=== PATIENT | male | born 1980 | race Caucasian/White ===

== ENCOUNTER 2020-08-25 23:08 | Outpatient (REF) | payer OTHER, SELFPAY ==
[2020-08-27 10:07] LABS: COVID-19 RT-PCR UVMMC Result Negative (Negative)
== END 2020-08-25 23:09 | disposition home or self-care (01) ==
LOC: LBN 23:08
PROVIDERS: Visit Provider Nurse Practitioner Family
DX: Z20.822 Contact with and (suspected) exposure to COVID-19 (principal); R05 Cough
CPT/HCPCS: U0003

== ENCOUNTER 2022-11-21 11:58 | Outpatient (REF) | payer OTHER, SELFPAY ==
[2022-11-21 22:06] LABS: Uric Acid 11.7 mg/dL (3.5-7.2)
[2022-11-21 22:28] LABS: Abs Immature Grans 0.03 10^3/uL (0.0-0.06); Absolute Basophil Count 0.07 10^3/uL (0.0-0.2); Absolute Eosinophil Count 0.31 10^3/uL (0.0-0.7); Absolute Lymphocyte Count 2.17 10^3/uL (1.2-3.4); Absolute Monocyte Count 0.67 10^3/uL (0.1-0.8); Basophils % 0.8; Eosinophils % 3.7; HCT 43.8 % (40.0-50.0); HGB 15.4 g/dL (13.5-17.5); Immature Grans % 0.4; Lymphocytes % 25.7; MCH 32.6 pg (27.0-33.0); MCHC 35.2 % (32.0-36.0); MCV 93 fL (80-95); MPV 10.3 fL (8.0-11.0); Monocytes % 7.9; Neutrophils % 61.5; Platelet Count 337 10^3/uL (130-400); RBC 4.73 10^6/uL (4.36-5.78); RDW 12.8 % (11.8-14.1); RDW-SD 43.6 fL; WBC 8.45 10^3/uL (4.4-10.8)
== END 2022-11-21 11:59 | disposition home or self-care (01) ==
LOC: LBN 11:58
PROVIDERS: Visit Provider Nurse Practitioner Family
DX: M79.644 Pain in right finger(s) (principal); M79.89 Other specified soft tissue disorders
CPT/HCPCS: 84550; 85025

== ENCOUNTER 2023-01-11 08:12 | Outpatient (REF) | payer OTHER, SELFPAY ==
--- NOTE | 2023-01-11 08:05 | SKI_PTH ---
PATIENT: Chuy Tapia LOC: [facility] U#:[id number] AGE/SX: 42/M ROOM: RE01/11/[address]: Jean Carlos Joyner MD : 1980 BED: DIS: 01/11/2023 SPEC #: [id number] RECD: 01/11/23 12:23 STATUS: MIKAYLA RE #: [id number] RADHA: 01/11/23 08:[address]: Jean Carlos Joyner DEPT: Surgical Specimen RECD BY: Leslie Harris ENTERED: 01/11/23 12:24 SP TYPE: NAEL BUTTERFIELD DR: Cj Atwood DNP Tissues: 1 - SKIN BIOPSY(SHAVE/PUNCH) Procedures: GROSS AND MICRO LEVEL 3 Comments: [id number]
== END 2023-01-11 08:13 | disposition home or self-care (01) ==
LOC: LBN 08:12
PROVIDERS: PCP Nurse Practitioner Family; Visit Provider Surgery
DX: L72.0 Epidermal cyst (principal); R22.1 Localized swelling, mass and lump, neck
CPT/HCPCS: 88304; 88305

== ENCOUNTER 2023-01-12 01:28 | Outpatient (CLI) | payer OTHER, SELFPAY ==
[2023-01-12 12:35] LABS: ALT 41 U/L (16-63); AST 24 U/L (15-37); Albumin 4.3 g/dL (3.4-5.0); Alkaline Phosphatase 75 U/L (46-116); Anion Gap 9.9 mmol/L (3-11); BUN 9 mg/dL (7-18); CO2 28.1 mmol/L (21.0-32.0); CREATININE 1.3 mg/dL (0.70-1.30); Calcium 9.4 mg/dL (8.5-10.1); Chloride 98 mmol/L (98-107); Cholesterol 217 mg/dL (<200); Estimated GFR 69.47 (mL/min/1.73m2); Glucose 100 mg/dL (74-106); HDL Cholesterol 56 mg/dL (40-60); Potassium 4.7 mmol/L (3.5-5.1); Sodium 136 mmol/L (136-145); Total Protein 7.7 g/dL (6.4-8.2); Triglyceride 478 mg/dL (<150)
[2023-01-12 13:18] LABS: LDL CHOLESTEROL 103 mg/dL (<100)
[2023-01-13 10:05] LABS: Hepatitis C Ab w Rflx HCV PCR Negative (Negative)
[2023-01-13 10:28] LABS: HIV-1/2 Ag & Ab Screen Negative (Negative)
[2023-01-13 10:58] LABS: Lyme Ab w Rflx to Lyme Confirm Negative (Negative)
[2023-01-15 01:05] LABS: Anaplasma phagocytophilum Negative (Negative); B. miyamotoi PCR Negative (Negative); Babesia divergens/MO-1 Negative (Negative); Babesia duncani Negative (Negative); Babesia microti Negative (Negative); Ehrlichia chaffeensis Negative (Negative); Ehrlichia ewingii/canis Negative (Negative); Ehrlichia muris eauclairensis Negative (Negative)
== END 2023-01-12 01:29 | disposition home or self-care (01) ==
LOC: LOS 01:29
PROVIDERS: PCP Nurse Practitioner Family; Visit Provider Nurse Practitioner Family
DX: Z13.220 Encounter for screening for lipoid disorders (principal); Z11.4 Encounter for screening for human immunodeficiency virus [HIV]; Z11.59 Encounter for screening for other viral diseases
CPT/HCPCS: 36415; 80053; 80061; 83721; 86803; 87389; 87798; 86618

== ENCOUNTER 2023-09-26 05:11 | Outpatient (CLI) | payer OTHER, SELFPAY ==
[2023-09-26 17:42] LABS: Anion Gap 11.2 mmol/L (3-11); BUN 15 mg/dL (7-18); CO2 25.8 mmol/L (21.0-32.0); CREATININE 1.2 mg/dL (0.70-1.30); Calcium 9.4 mg/dL (8.5-10.1); Chloride 99 mmol/L (98-107); Glucose 96 mg/dL (74-106); Potassium 4.2 mmol/L (3.5-5.1); Sodium 136 mmol/L (136-145); Uric Acid 7.3 mg/dL (3.5-7.2)
== END 2023-09-26 05:12 | disposition home or self-care (01) ==
LOC: LBO 05:11
PROVIDERS: PCP Nurse Practitioner Family; Visit Provider Nurse Practitioner Family
DX: I10 Essential (primary) hypertension (principal); M10.9 Gout, unspecified
CPT/HCPCS: 36415; 80048; 84550

== ENCOUNTER 2024-09-09 20:31 | Emergency (ER) | payer OTHER, SELFPAY ==
--- NOTE | 2024-09-09 20:30 | RT.EKG_ITS ---
APPROVED REPORT Exam: Resting ECG Reason for Exam: Syncope Patient Location: E HR:85 bpm ECG Measurements Heart Rate 85 AXIS AR 154 P 45 QRSd 92 QRS 52 QT 350 T 34 QTc 417 Conclusion Sinus rhythm...normal P axis, V-rate 60- 99
[2024-09-09 20:35] VITALS: BP 141/96; PULSE 92; RESP 20; O2SAT 97
[2024-09-09 21:39] VITALS: RESP 18
--- NOTE | 2024-09-09 21:45 | W.ED.GENAD ---
Discharge Plan Disposition Patient Disposition: Home Condition: Stable Discharge Details Clinical Impression: Vasovagal syncope Primary Care Provider: Cj Mclean ED Provider: Valerio Day Home Meds and New Rx's Prescriptions: Continued cetirizine [Allergy Relief (cetirizine)] 10 mg tablet 10 mg PO DAILY PRN (Reason: allergy symptoms) Qty: 90 4RF montelukast 10 mg tablet 10 mg PO QHS PRN (Reason: allergies) Qty: 90 4RF allopurinol 100 mg tablet 200 mg PO DAILY Qty: 180 3RF ibuprofen 200 mg tablet 600 mg PO Q6H PRN colchicine 0.6 mg tablet 0.6 mg PO BID Qty: 180 1RF lisinopril 20 mg tablet 20 mg PO DAILY Qty: 90 4RF Arnuity Ellipta 100 mcg/actuation blister with device 1 inh inhalation DAILY Qty: 30 11RF albuterol sulfate 90 mcg/actuation HFA aerosol inhaler 2 puff inhalation Q6H PRN (Reason: shortness of breath or wheezing) Qty: 8.5 1RF Discharge Instructions Instructions: Fainting, Adult ED Additional Instructions: You were seen in the emergency department for your vasovagal syncope episode, this has happened multiple times, I think it is time to follow-up with a referral to cardiology to get some baseline studies done, I do not see any more for CTA of the neck as you requested, you can pursue an outpatient ultrasound of the carotids which I placed an outpatient order form for you, your story and exam is not consistent with carotid pathology, this is most likely postural hypotension, your workup is negative for any cardiac abnormality or any major electrolyte abnormality, there is no sign of infection, x-ray of your chest is normal, x-ray of the hand shows no acute fracture. Please stay well-hydrated, please return to the emergency department for any episodes of chest pain especially with further falls and syncope. Referrals: Cj Mclean, [employer] [Primary Care Provider] - Discharge Orders Other Ambulatory Orders: US carotid (Routine) Timeframe: 10 Day Facility: [facility] - Location: DIAGNOSTIC IMAGING Ordered By: Valerio Day Discharge Data Discharge Date/Time-TO BE ENTERED AT DEPARTURE: 09/09/24 23:21 HPI General Date/Time Provider Initiated Documentation: 09/09/24 21:20. HPI Narrative: 44 year-old male presents to ED today by POV/ambulating with his with a chief complaint of syncope and fall- he got up as he was feeling mildly short on breath to get his inhaler, and lost consciousness and fell- was awoken by his with minor bruise above L eye, L ear abrasion, and R hand pain with onset just prior to arrival. Quality described as bruised face, pain at base of R first finger- R-hand dominant, otherwise doesn't remember, no radiation to current chest pain, nausea/vomiting, dehydration, diffuse weakness, altered mental status, abdominal pain, fever, cough. Severity is described as mild to moderate. Palliating factors include nothing specific attempted. Provoking factors include nothing specific. Patient not anticoagulated. Related Data Home Medications ?Medication ?Instructions ?Recorded ?Confirmed ibuprofen 200 mg tablet 600 mg PO Q6H PRN 01/11/23 09/09/24 colchicine 0.6 mg tablet 0.6 mg PO BID #180 tabs 10/04/23 09/09/24 lisinopril 20 mg tablet 20 mg PO DAILY #90 tabs 12/19/23 09/09/24 allopurinol 100 mg tablet 200 mg (2 x 100 mg) PO DAILY #180 02/14/24 09/09/24 tab-caps cetirizine 10 mg tablet (Allergy 10 mg PO DAILY PRN allergy 02/14/24 09/09/24 Relief (cetirizine)) symptoms #90 tabs montelukast 10 mg tablet 10 mg PO QHS PRN allergies #90 tabs 02/14/24 09/09/24 fluticasone furoate 100 1 inh inhalation DAILY #30 ea 03/08/24 09/09/24 mcg/actuation blister powder for inhalation (Arnuity Ellipta) albuterol sulfate 90 mcg/actuation 2 puff inhalation Q6H PRN 07/24/24 09/09/24 aerosol inhaler shortness of breath or wheezing #8.5 grams Previous Rx's ?Medication ?Instructions ?Recorded colchicine 0.6 mg tablet 0.6 mg PO BID #180 tabs 10/04/23 lisinopril 20 mg tablet 20 mg PO DAILY #90 tabs 12/19/23 allopurinol 100 mg tablet 200 mg (2 x 100 mg) PO DAILY #180 02/14/24 tab-caps cetirizine 10 mg tablet (Allergy 10 mg PO DAILY PRN allergy 02/14/24 Relief (cetirizine)) symptoms #90 tabs montelukast 10 mg tablet 10 mg PO QHS PRN allergies #90 tabs 02/14/24 fluticasone furoate 100 1 inh inhalation DAILY #30 ea 03/08/24 mcg/actuation blister powder for inhalation (Arnuity Ellipta) albuterol sulfate 90 mcg/actuation 2 puff inhalation Q6H PRN 07/24/24 aerosol inhaler shortness of breath or wheezing #8.5 grams Allergies Allergy/AdvReac Type Severity Reaction Status Date / Time No Known Allergies Allergy Unverified 09/09/24 20:41 General Stated Complaint: [id number] MARLA: 3 Review of Systems All systems reviewed & are unremarkable except as noted in HPI and below Exam Narrative Exam Narrative: GENERAL APPEARANCE: Well-nourished, non-toxic, awake and alert, atraumatic, no acute distress. SKIN: Warm, pink, dry, minor abrasion to right hand HEAD: Normocephalic, atraumatic, negative Umanzor sign, normal hair distribution for gender/age. EYES: Normal conjunctiva, no exudates on lids/lashes. ENT: Nares patent, no circumoral cyanosis, no facial swelling, left periorbital ecchymosis, no hemotympanum bilaterally NECK: Supple, trachea midline, painless cervical ROM, no midline cervical tenderness. LUNGS/CHEST: Lungs CTA bilaterally, non-labored respirations, normal A/P diameter, symmetrical expansion, no chest wall deformity HEART (CV/PV): Regular rate and rhythm without murmur, no peripheral edema, no JVD. ABDOMEN: Soft, non-distended, no guarding, no rigidity ecchymosis or abdominal tenderness. MSK: Normal ROM, no swelling/deformity to bilateral UEs or LEs, moving all extremities without weakness, no cyanosis, spine midline without tenderness, normal curvature. NEURO: Mental Status AAOx4 - alert to person, place, time, events No facial droop, no forehead involvement. Motor: No focal weakness - strength 5/5 in bilateral UEs and LEs, proximal and distal, symmetric. Sensory: sensation intact to light touch globally. Gait normal: patient ambulated without ataxia into ED room. PSYCH: euthymic, cooperative, pleasant, appropriate speech Course Vital Signs Vital signs: Vital Signs Pulse 92 H 09/09/24 20:35 Respiratory Rate 20 09/09/24 20:35 Blood Pressure 141/96 H 09/09/24 20:35 Pulse Oximetry 97 09/09/24 20:35 Pulse 92 H 09/09/24 20:35 Respiratory Rate 18 09/09/24 21:39 Respiratory Effort Normal 09/09/24 21:39 Respiratory Depth Normal 09/09/24 21:39 Respiratory Pattern Normal 09/09/24 21:39 Blood Pressure 141/96 H 09/09/24 20:35 Blood Pressure Position Sitting 09/09/24 20:35 Pulse Oximetry 97 09/09/24 20:35 Oxygen Delivery Method Room Air 09/09/24 20:35 Oxygen Flow Rate 0 09/09/24 20:35 Medical Decision Making This dictation utilizes [id number] dictation software and may contain unedited grammatical errors. 44 year-old male presents to ED today by POV/ambulating with his with a chief complaint of syncope and fall- he got up as he was feeling mildly short on breath to get his inhaler, and lost consciousness and fell- was awoken by his with minor bruise above L eye, L ear abrasion, and R hand pain with onset just prior to arrival. Quality described as bruised face, pain at base of R first finger- R-hand dominant, otherwise doesn't remember, no radiation to current chest pain, nausea/vomiting, dehydration, diffuse weakness, altered mental status, abdominal pain, fever, cough. Severity is described as mild to moderate. Palliating factors include nothing specific attempted. Provoking factors include nothing specific. Patients' medical history: Arthralgia, hypertension, gout. Family and social history: Recently quit smoking 6 weeks ago, eats normal diet, no recent travel or sick contacts. Pertinent exam findings / vital signs include contusion to left eyebrow, left periorbital ecchymosis, orbit stable without crepitus, small abrasion to the pinna of the left ear, no hemotympanum bilaterally, benign cardiopulmonary status, benign abdomen, pain at the first right MCP joint without anatomical snuffbox tenderness. Differential / pathologies of concern include vasovagal syncope, arrhythmia, unlikely ACS, possible dehydration, contusion, unlikely fracture, not ICH, not vertebral dissection or stroke. Diagnostic studies of: - CBC, CMP, BNP, serial troponins, EKG, XR chest, XR right hand, TSH, UA. - CBC shows no leukocytosis, no anemia - CMP shows no DESIREE, no signs of major dehydration, LFTs WNL - Magnesium WNL - BNP WNL - Serial Trop negative - TSH WNL - EKG shows sinus rhythm at 85 bpm with previous followed by narrow complex QRS, normal axis, normal intervals, no T wave abnormalities, no ST changes, good R wave progression - UA pending - CXR negative - XR hand shows no acute fracture. Interventions of: - None. ED Course/Assessment/Plan: 44-year-old male got up to use his inhalers due to short of breath had a syncopal event, this has happened a few times prior, his workup was completely negative he suffered no significant head trauma except for some bruising around the left eye, and injured his right hand without acute fracture was reminded abrasion, EKG shows no arrhythmia, CBC and CMP show no major abnormality, I discussed with the patient his likelihood of vasovagal syncope, they were concerned with stroke but this is not a stroke presentation, counseled him on following up with ultrasounds of the carotid to spare irradiative study- which was ordered routine by myself. Counseled on following up with primary care with referral to cardiology for likely treadmill stress test and other specialized testing for baseline, strict return criteria for any further episodes of syncope and passing out Findings not consistent with ACS, stroke, dehydration, electrolyte abnormality, arrhythmia, significant trauma. Disposition of Vasovagal Syncope. Patient verbalized understanding of the plan and return to ED criteria and engaged in shared decision making. Medical Records Medical records reviewed: Yes I reviewed the patient's medical records. Imaging Data Radiologic Study: Attestation: I personally reviewed and interpreted this imaging study as follows: Imaging: X-Ray Radiologist's impression: Exam: XR Chest Exam date and time: 09/09/2024 10:51 PM Age: 44 years old Clinical indication: Other: Syncope TECHNIQUE: Imaging protocol: Radiologic exam of the chest. Views: 2 views. COMPARISON: No relevant prior studies available. FINDINGS: Lungs: Unremarkable. No consolidation. Pleural spaces: Unremarkable. No pleural effusion. No pneumothorax. Heart/Mediastinum: Unremarkable. No cardiomegaly. Bones/joints: Unremarkable. IMPRESSION: No acute findings. Dictated and Authenticated by: Sagar Mccrary MD. Radiologic Study #2: Attestation: I personally reviewed and interpreted this imaging study as follows: Imaging: X-Ray Radiologist's impression: Exam: XR Right Hand Exam date and time: 09/09/2024 10:49 PM Age: 44 years old Clinical indication: Pain; Hand; Right; Additional info: R hand pain TECHNIQUE: Imaging protocol: Radiologic exam of the right hand. Views: 3 or more views. COMPARISON: No relevant prior studies available. FINDINGS: Bones/joints: Normal. Soft tissues: Normal. IMPRESSION: No acute findings. Dictated and Authenticated by: Sagar Mccrary MD. Lab Data Lab results reviewed: Yes I reviewed the patient's lab results. Labs: Laboratory Tests Range/Units 09/09/24 09/09/24 09/09/24 21:32 22:36 22:45 WBC (4.4-10.8) 10^3/uL 6.80 RBC (4.36-5.78) 10^6/uL 4.30 L Hgb (13.5-17.5) g/dL 13.8 Hct (40.0-50.0) % 40.1 MCV (80-95) fL 93 MCH (27.0-33.0) pg 32.1 MCHC (32.0-36.0) % 34.4 RDW (11.8-14.1) % 13.4 Plt Count (130-400) 10^3/uL 341 MPV (8.0-11.0) fL 9.0 Immature Gran % % 0.3 Neutrophils % % 47.1 Lymphocytes % % 34.3 Monocytes % % 10.0 Eosinophils % % 7.1 Basophils % % 1.2 Nucleated RBC % (0.0-0.3) % 0.0 Absolute Neutrophils (1.2-6.7) 10^3/uL 3.21 Absolute Lymphocytes (1.2-3.4) 10^3/uL 2.33 Absolute Monocytes (0.1-0.8) 10^3/uL 0.68 Absolute Eosinophils (0.0-0.7) 10^3/uL 0.48 Absolute Basophils (0.0-0.2) 10^3/uL 0.08 Sodium (136-145) mmol/L 136 Potassium (3.5-5.1) mmol/L 3.7 Chloride (98-107) mmol/L 99 Carbon Dioxide (21.0-32.0) mmol/L 25.5 Anion Gap (3-11) mmol/L 11.5 H BUN (7-18) mg/dL 11 Creatinine (0.70-1.30) mg/dL 1.0 Est GFR (CKD-EPI 2020) (mL/min/1.73m2) 94.00 Glucose (74-106) mg/dL 110 H Calcium (8.5-10.1) mg/dL 8.5 Magnesium (1.8-2.4) mg/dL 2.1 Troponin I (<or=76) ng/L 7 8 NT-Pro-B Natriuret Pep (<300) pg/mL 17 TSH (0.36-3.74) uIU/mL 3.23 Urine Color (Yellow) Yellow Urine Clarity (Clear) Clear Urine pH (5-8) 5.5 Ur Specific [place] (1.005-1.025) <= 1.005 Urine Protein (Neg-Trace) mg/dL Negative Urine Ketones (Negative) mg/dL Negative Urine Blood (Negative) Negative Urine Nitrite (Negative) Negative Urine Bilirubin (Negative) Negative Urine Urobilinogen (Up to 0.2) mg/dL 0.2 Ur Leukocyte Esterase (Negative) Negative Urine Glucose (Negative) mg/dL Negative Quality:SDOH Health Related Social Needs: No Data to Display PFSH All Active Problems (Updated 09/09/24 @ 22:39 by GARRETT Levy) Vasovagal syncope (Acute) Changing skin lesion (Acute) Seasonal allergies (Acute) Arthralgia (Acute) Hypertension (Chronic) Preventative health care (Acute) Gout (Chronic) Mass of soft tissue of neck (Acute) Medical History (Updated 09/09/24 @ 22:39 by GARRETT Levy) Viral URI Cancer of digestive system ; 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 Neg. for dysplasia Family History Grandmother Personal history of malignant neoplasm BREAST Father No problems noted. Paternal Grandmother No problems noted. Maternal Grandfather No problems noted. Paternal Grandfather No problems noted. Social History (Updated 02/14/24 @ 13:50 by Heike Cheema) Smoking/Tobacco Use Status: Current every day Tobacco Type: cigarettes Tobacco: How many years used: 30 Quit status: considering quitting Second Hand Exposure: Yes Smoking risk assessment performed?: Yes Alcohol Intake: current Alcohol Intake frequency: 3 or more drinks per day Alcohol type: beer Details: 6 or more drinks monthly Drug use: Socially Substance use type: marijuana Caregiver/Support person: No Household members: spouse and children Housing: house Communication Needs: None Do you need help understanding health information?: Never Pets and animals: Yes Pets and animals: cat(s) Sexually active: Yes Do you think of yourself as: straight/heterosexual Current gender identity: male What is your relationship status?: How often do you talk on the phone with friends or family?: decline to answer How often do you get together with friends or relatives?: decline to answer How often do you attend buddhist or cheondoism services?: decline to answer Do you belong to any clubs or organized social groups?: decline to answer Panel score (0-1 are the most socially isolated patients): 1 What type of physical activity do you participate in: walking and other Details: hiking Frequency: 5-6 times per week Meagan/Roman Catholic: Non faith Special meagan needs: No Seatbelt use: sometimes Helmet use: Yes Helmet use: always Drive intox or ride w/intox dedicated driver: No PAWSS Have you Been Recently Intoxicated or Drunk Within the Last 30 days?: No Have you Ever Experienced Previous Episodes of Alcohol Withdrawal?: No Have you ever Experienced Withdrawal Seizures?: No Have you ever Experienced Delirium Tremens(DT)s?: No Have you ever undergone Alcohol Rehabilitation Treatment (i.e, inpt ot outpatient treatment programs)?: No Have you ever Experienced Blackouts?: No Have you ever Combined Alcohol with other Downers within the last 90 days?: No Have you ever Combined Alcohol with any other Substance of Abuse during the last 90 days?: No Positive Blood Alcohol level on Presentation? [PCS.BAL]: No Evidence of Increased Autonomic Activity (i.e. HR>120, tremor, sweating, agitation, nausea)?: No Result: 0
[2024-09-09 22:02] LABS: Abs Immature Grans 0.02 10^3/uL (0.0-0.06); Absolute Basophil Count 0.08 10^3/uL (0.0-0.2); Absolute Eosinophil Count 0.48 10^3/uL (0.0-0.7); Absolute Lymphocyte Count 2.33 10^3/uL (1.2-3.4); Absolute Monocyte Count 0.68 10^3/uL (0.1-0.8); Absolute Neutrophil Count 3.21 10^3/uL (1.2-6.7); Basophils % 1.2 %; Eosinophils % 7.1 %; HCT 40.1 % (40.0-50.0); HGB 13.8 g/dL (13.5-17.5); Immature Grans % 0.3 %; Lymphocytes % 34.3 %; MCH 32.1 pg (27.0-33.0); MCHC 34.4 % (32.0-36.0); MCV 93 fL (80-95); Neutrophils % 47.1 %; Platelet Count 341 10^3/uL (130-400); RDW 13.4 % (11.8-14.1); RDW-SD 45.6 fL
--- NOTE | 2024-09-09 22:30 | DI.RAD_ITS ---
Exam(s) XR CHEST 2V PA LATERAL EXAM: XR CHEST 2V PA LATERAL CLINICAL HISTORY: syncope TECHNIQUE: 2D digital imaging was performed. Two views. COMPARISON: No exams were available for comparison FINDINGS: HEART: Normal size. Aorta: Not dilated. PULMONARY VASCULATURE: Normal. MEDIASTINUM: Unremarkable. LUNGS: Clear. PLEURAL SPACE: No pleural effusion or pneumothorax. BONE:Unremarkable for age. SOFT TISSUES: Unremarkable. IMPRESSION: No acute abnormality. DATA REPOSITORY: RADIATION DOSE DELIVERED:
--- NOTE | 2024-09-09 22:30 | DI.RAD_ITS ---
Exam(s) XR HAND RT COMPLETE EXAM: XR HAND RT COMPLETE CLINICAL HISTORY: R hand pain. TECHNIQUE: 2D digital imaging was performed. Three views. COMPARISON: No exams were available for comparison FINDINGS: BONES: No acute fracture is present. No bony destructive lesion is seen. JOINTS: No dislocation present. Mild degenerative changes at the distal interphalangeal joint of th e 3rd finger. SOFT TISSUE: Normal. IMPRESSION: No acute abnormality. DATA REPOSITORY: RADIATION DOSE DELIVERED:
[2024-09-09 22:39] LABS: Anion Gap 11.5 mmol/L (3-11); BUN 11 mg/dL (7-18); CO2 25.5 mmol/L (21.0-32.0); Calcium 8.5 mg/dL (8.5-10.1); Chloride 99 mmol/L (98-107); Glucose 110 mg/dL (74-106); Magnesium 2.1 mg/dL (1.8-2.4); NT-proBNP 17 pg/mL (<300); Potassium 3.7 mmol/L (3.5-5.1); Sodium 136 mmol/L (136-145); TSH (W/Ref FT4) 3.23 uIU/mL (0.36-3.74); Troponin I 7 ng/L (<or=76)
[2024-09-09 22:55] LABS: Bilirubin Negative (Negative); Blood Negative (Negative); Clarity Clear (Clear); Glucose Negative (Negative); Ketones Negative (Negative); Leukocyte Esterase Negative (Negative); Nitrite Negative (Negative); Specific Gravity <= 1.005 (1.005-1.025); Urobilinogen 0.2 mg/dL (Up to 0.2); pH 5.5 (5-8)
[2024-09-09 23:00] LABS: Troponin I 8 ng/L (<or=76)
--- NOTE | 2024-09-09 23:45 | DI.VRAD_ITS ---
PROCEDURE INFORMATION: Exam: XR Chest Exam date and time: 09/09/2024 10:51 PM Age: 44 years old Clinical indication: Other: Syncope TECHNIQUE: Imaging protocol: Radiologic exam of the chest. Views: 2 views. COMPARISON: No relevant prior studies available. FINDINGS: Lungs: Unremarkable. No consolidation. Pleural spaces: Unremarkable. No pleural effusion. No pneumothorax. Heart/Mediastinum: Unremarkable. No cardiomegaly. Bones/joints: Unremarkable. IMPRESSION: No acute findings. Dictated and Authenticated by: Sagar Mccrary MD. Orderin Shay Luo MD
--- NOTE | 2024-09-09 23:48 | DI.VRAD_ITS ---
PROCEDURE INFORMATION: Exam: XR Right Hand Exam date and time: 09/09/2024 10:49 PM Age: 44 years old Clinical indication: Pain; Hand; Right; Additional info: R hand pain TECHNIQUE: Imaging protocol: Radiologic exam of the right hand. Views: 3 or more views. COMPARISON: No relevant prior studies available. FINDINGS: Bones/joints: Normal. Soft tissues: Normal. IMPRESSION: No acute findings. Dictated and Authenticated by: Sagar Mccrary MD. Orderin Shay Luo MD
== END 2024-09-09 23:21 | disposition home or self-care (01) ==
PROVIDERS: Emergency Provider Physician Assistant; PCP Nurse Practitioner Family
DX: R55 Syncope and collapse (principal); S00.12XA Contusion of left eyelid and periocular area, initial encounter; S00.83XA Contusion of other part of head, initial encounter; S00.412A Abrasion of left ear, initial encounter; M79.641 Pain in right hand; F17.210 Nicotine dependence, cigarettes, uncomplicated; W18.39XA Other fall on same level, initial encounter; Y93.89 Activity, other specified; Y92.018 Other place in single-family (private) house as the place of occurrence of the external cause
CPT/HCPCS: 80048; 93005; 99285; 71046; 73130; 81003; 83735; 83880; 84443; 84484; 85025; 93010; 99284

== ENCOUNTER 2024-09-27 08:12 | Outpatient (RCR) | payer OTHER, SELFPAY ==
--- NOTE | 2024-10-03 08:52 | W.HOLTRPT ---
Date of service: 10/03/24 Time of Service: 08:52 Holter Monitor Report Referring Provider:: Cj Hernandez Indications:: Syncope Holter Monitor Note: This is a 48-hour Holter monitor. Rhythm throughout was sinus with an average heart rate of 86. Minimum was 52, maximum 142. There were no ventricular dysrhythmias. There were 3 atrial premature beats. There was no atrial fibrillation, no high-grade AV block, no pauses greater than 3 seconds. No symptoms were reported
== END 2024-10-12 23:59 | disposition home or self-care (01) ==
LOC: CARDOPNVT 08:12
PROVIDERS: PCP Nurse Practitioner Family; Visit Provider Internal Medicine Cardiovascular Disease
DX: R55 Syncope and collapse (principal); I49.1 Atrial premature depolarization
CPT/HCPCS: 93225; 93226

== ENCOUNTER 2025-02-14 14:04 | Outpatient (CLI) | payer OTHER, SELFPAY ==
[2025-02-14 16:53] LABS: ALT 39 U/L (16-63); AST 24 U/L (15-37); Albumin 3.5 g/dL (3.4-5.0); Alkaline Phosphatase 75 U/L (46-116); Anion Gap 12.1 mmol/L (3-11); BUN 12 mg/dL (7-18); Bilirubin, Total 1.0 mg/dL (0.2-1.0); CO2 25.9 mmol/L (21.0-32.0); Calcium 8.5 mg/dL (8.5-10.1); Chloride 100 mmol/L (98-107); Cholesterol 216 mg/dL (<200); Estimated GFR 83.84 (mL/min/1.73m2); Glucose 97 mg/dL (74-106); HDL Cholesterol 52 mg/dL (>or=40); Potassium 4.2 mmol/L (3.5-5.1); Sodium 138 mmol/L (136-145); Total Protein 6.8 g/dL (6.4-8.2); Triglyceride 625 mg/dL (<150)
[2025-02-14 17:07] LABS: LDL CHOLESTEROL 90 mg/dL (<100)
[2025-02-14 17:17] LABS: Uric Acid 5.5 mg/dL (3.5-7.2)
== END 2025-02-14 14:05 | disposition home or self-care (01) ==
LOC: LOS 14:05
PROVIDERS: PCP Nurse Practitioner Family; Visit Provider Nurse Practitioner Family
DX: Z13.220 Encounter for screening for lipoid disorders (principal); M10.9 Gout, unspecified
CPT/HCPCS: 36415; 80053; 80061; 83721; 84550